=== PATIENT | male | born 1985 | race Caucasian/White ===

== ENCOUNTER 2021-03-08 02:00 | Emergency (ER) | payer MEDICAID ==
[~2021-03-08] VITALS: Ht 177.8 cm; Wt 70.0 kg
[2021-03-08 02:03] VITALS: BP 136/81
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
[2021-03-08] MEDS ORDERED: LIDOcaine 1% W/epiNEPHrine 1:200,000 10ml vial IJ ONE (03:10)
[2021-03-08] MEDS ORDERED: TETanus/Pertussis (Acell)/Diphther VAC/PF (Tdap-Adult) 0.5ml syringe IMVAC ONE (03:10)
== END 2021-03-08 06:55 | disposition home or self-care (01) ==
LOC: ER 02:02
DX: S01.111A Laceration without foreign body of right eyelid and periocular area, initial encounter (principal); S01.511A Laceration without foreign body of lip, initial encounter; F17.200 Nicotine dependence, unspecified, uncomplicated; F15.90 Other stimulant use, unspecified, uncomplicated; Z72.89 Other problems related to lifestyle; Z20.3 Contact with and (suspected) exposure to rabies; X58.XXXA Exposure to other specified factors, initial encounter; Y93.89 Activity, other specified; Y92.89 Other specified places as the place of occurrence of the external cause; Y99.8 Other external cause status
CPT/HCPCS: 12013; 70486; 90471; 90715; 99284

== ENCOUNTER 2021-11-18 11:49 | Emergency (ER) | payer MEDICAID ==
[~2021-11-18] VITALS: Ht 177.8 cm; Wt 68.2 kg
[2021-11-18 11:54] VITALS: BP 135/72
[2021-11-18] MEDS ORDERED: TETanus/Pertussis (Acell)/Diphther VAC/PF (Tdap-Adult) 0.5ml syringe IMVAC ONE (12:30)
[2021-11-18] MEDS ORDERED: AMOX-580 PO (12:44)
== END 2021-11-18 13:20 | disposition home or self-care (01) ==
LOC: ER 11:49
DX: S91.351A Open bite, right foot, initial encounter (principal); Z88.8 Allergy status to other drugs, medicaments and biological substances; W54.0XXA Bitten by dog, initial encounter; Y93.89 Activity, other specified; Y92.89 Other specified places as the place of occurrence of the external cause; Y99.8 Other external cause status
CPT/HCPCS: 90471; 90715; 99283

== ENCOUNTER 2022-01-11 08:05 | Emergency (ER) | payer MEDICAID ==
[~2022-01-11] VITALS: Ht 177.8 cm; Wt 66.2 kg
[2022-01-11 08:23] VITALS: BP 126/82
--- NOTE | 2022-01-11 12:44 | NUR ---
PT CALLED FOR COVID RESULTS; NOTIFIED THAT HE WAS NEGATIVE
== END 2022-01-11 09:32 | disposition home or self-care (01) ==
LOC: ER 08:06
DX: B34.9 Viral infection, unspecified (principal); Z20.822 Contact with and (suspected) exposure to COVID-19; F15.10 Other stimulant abuse, uncomplicated
CPT/HCPCS: 87635; 99283; C9803

== ENCOUNTER 2022-06-16 01:27 | Emergency (ER) | payer MEDICAID ==
[~2022-06-16] VITALS: Ht 177.8 cm; Wt 68.2 kg
== END 2022-06-16 05:43 | disposition home or self-care (01) ==
LOC: ER 01:30
DX: S60.311D Abrasion of right thumb, subsequent encounter (principal); Z48.00 Encounter for change or removal of nonsurgical wound dressing; X58.XXXD Exposure to other specified factors, subsequent encounter
CPT/HCPCS: 99281

== ENCOUNTER 2023-10-07 15:05 | Emergency (ER) | payer MEDICAID ==
[~2023-10-07] VITALS: Ht 177.8 cm; Wt 72.7 kg
[2023-10-07 15:26] VITALS: BP 126/52; PULSE 82; RESP 18; TEMP 97.8; O2SAT 99
== END 2023-10-07 16:26 | disposition home or self-care (01) ==
LOC: ER 15:05
DX: H61.22 Impacted cerumen, left ear (principal)
CPT/HCPCS: 69209; 99282

== ENCOUNTER 2025-05-19 | Emergency (ER) | payer MEDICAID ==
[~2025-05-19] VITALS: Ht 177.8 cm; Wt 68.2 kg
--- NOTE | 2025-05-19 00:42 | Physician Documentation ---
History of Present Illness ~ Chief Complaint: Laceration Stated Complaint: LEFT WRIST LAC Time Seen by MD: 00:26 HPI 39-year-old male who presents with lacerations. He tells me that he punched his left hand through a window. He has lacerations to his left wrist. No active bleeding. He denies any numbness or loss of function to his left hand. He is left-handed. Tetanus up-to-date. No other acute concerns Tetanus Within 5 Years: No Medication Reconciliation Allergies: Coded Allergies: benzoyl peroxide (Unverified Allergy, Intermediate, 10/07/23) Past Medical History Past Medical History: No Pertinent History Past Surgical History: no surgical history Alcohol Use: Heavy Drug Use: methamphetamine Lives In: Home Review of Systems Integumentary: Reports: laceration(s) Physical Exam Vital Signs: Temperature: 97.8, Heart Rate: 105, Respiratory Rate: 16, BP: 129/82, Pulse Oximetry: 98, Weight: 68.180 Oxygen Flow Rate: 0 Physical Exam General: This is a tired-appearing young man who is sleeping when I enter the room HEENT: Atraumatic, oropharynx is moist Heart: Mild tachycardic, appears regular Lungs: normal work of breathing, normal oxygen saturation on room air Extremities: Warm and well-perfused Left upper extremity: The patient has several lacerations over the anterior left wrist: At the mid anterior wrist there is a 2.5 cm full-thickness laceration, no active bleeding. Next to this, there was a 2nd 1 cm triangular shaped laceration, full-thickness, no active bleeding. On exploration of these lacerations, there was no glass or other foreign object. It does not penetrate to the tendons. He has full strength in finger flexion of all 5 digits. Normal sensation to light touch in all fingers. Neuro: Alert and oriented Psychiatric: Sleepy, but cooperative Procedures Laceration/Wound Repair Laceration : Location: Left wrist Length (cm): 1.5 Anesthesia: Lidocaine w/ Epi Prep: irrigated by nurse Repaired: skin Wound Repaired With: sutures Suture Size/Type: 4-0, prolene Dressing Applied: simple, bacitracin Tolerated Procedure Well?: yes, no complications Procedure Note 2nd laceration: Left wrist, 1 cm full-thickness laceration The wound was anesthetized with 1% lidocaine with epinephrine, irrigated with the nurse, and closed with 4-0 Prolene Progress Results/Orders Results/Orders Vital Signs 05/19/25 00:05 Temp 97.8 Pulse 105 Resp 16 B/P (MAP) 129/82 Pulse Ox 98 O2 Flow Rate 0 Medical Decision Making Additional Comments The patient presents with lacerations to his left wrist after punching through a window. There was no evidence of deep puncture wound or foreign object. No evidence of tendon or nerve injury. The wound was cleaned and repaired with sutures. Tetanus is up-to-date. He will be discharged with home care instr uctions and follow up for suture removal Departure Disposition: HOME / SELF CARE / HOMELESS Impression: Primary Impression: Laceration Condition: Improved Discharge Instructions: Laceration Care, Adult, [id number] Referrals: NO PRIMARY CARE PROVIDER (PCP) Education Educated: Patient Educated regarding: diagnosis, treatment, need for follow up Signature Scribe Signature: larisa Attestation: EVA Reyes MD May 19, 2025 00:42
[2025-05-19] MEDS: bacitracin 15gm ointment TP ONE (02:10)
[2025-05-19 02:15] VITALS: BP 130/84; PULSE 99; RESP 18; TEMP 98.6; O2SAT 99
== END 2025-05-19 02:16 | disposition home or self-care (01) ==
LOC: ER 00:01
DX: S61.512A Laceration without foreign body of left wrist, initial encounter (principal); F15.90 Other stimulant use, unspecified, uncomplicated; F10.90 Alcohol use, unspecified, uncomplicated; Z88.8 Allergy status to other drugs, medicaments and biological substances; W26.9XXA Contact with unspecified sharp object(s), initial encounter; Y93.89 Activity, other specified; Y92.89 Other specified places as the place of occurrence of the external cause; Y99.8 Other external cause status; Y90.9 Presence of alcohol in blood, level not specified
CPT/HCPCS: 12001; 99282; 99283; A6258; A6449